=== PATIENT | female | born 1995 | race Caucasian/White ===

== ENCOUNTER 2023-10-19 21:02 | Emergency (ER) | payer MEDICAID, SELFPAY ==
[2023-10-19 21:03] VITALS: BP 129/77; PULSE 104; RESP 18; TEMP 37.2; O2SAT 100
[2023-10-19 21:27] VITALS: BP 134/68; PULSE 91; RESP 15; O2SAT 100
[2023-10-19 21:33] LABS: Basophils Percent Auto 0.4 % (0.2-1.2); Eosinophils Percent Auto 0.2 % (0-4.4); Hematocrit 35.5 % (37.0-47.0); Hemoglobin 12.4 g/dL (12.0-15.0); Immature Granulocyte Absolute 0.05 K/mm3 (0.00-0.031); Immature Granulocyte Percent A 0.4 % (0-0.5); Lymphocytes Absolute Auto 0.63 K/mm3 (0.9-3.2); Lymphocytes Percent Auto 5.6 % (18.3-44.2); Mean Corpuscular HGB Conc 34.9 g/dl (32-36); Mean Corpuscular Hemoglobin 30.3 pg (26-34); Mean Corpuscular Volume 86.8 fl (80-100); Mean Platelet Volume 10.7 fl (7.4-10.4); Monocytes Absolute Auto 0.7 K/mm3 (0.1-0.6); Monocytes Percent Auto 6.1 % (2.6-8.5); Neutrophils Absolute Auto 9.8 K/mm3 (1.3-6.7); Neutrophils Percent Auto 87.3 % (45.5-73.1); Platelet Count Result 189 k/mm3 (150-375); Red Blood Count 4.09 M/mm3 (4.2-5.4); Red Cell Distribution Width 13.2 % (11.5-14.5); White Blood Count 11.2 K/mm3 (4.5-10.0)
[2023-10-19 21:50] LABS: Alanine Aminotransferase 19 U/L (6-35); Albumin Level 4.3 g/dL (3.5-5.1); Alkaline Phosphatase 49 U/L (38-126); Anion Gap 9 mmol/L (4-12); Aspartate Amino Transferase 33 U/L (14-36); Bilirubin,Total 0.5 mg/dL (0.2-1.3); Blood Urea Nitrogen 10 mg/dL (7-17); Calcium 9.6 mg/dL (8.4-10.2); Carbon Dioxide 21 mmol/L (22-30); Chloride 103 mmol/L (98-107); Estimated CRCL calculation 112 ml/min; Estimated Glomerular Filt Rate > 60; Glucose 99 mg/dL (65-110); Lipase 46 U/L (23-300); Potassium 3.5 mmol/L (3.4-5.0); Sodium 133 mmol/L (137-145)
[2023-10-19] MEDS: SODIUM CHLORIDE 0.9% IV 1,000 ML 999 ML IV CONT ×2 (22:23)
[2023-10-19 22:33] LABS: Magnesium 1.7 mg/dL (1.6-2.3)
--- NOTE | 2023-10-19 22:38 | ED.NAVMDI ---
HPI - Nausea/Vomiting/Diarrhea General Chief complaint: Nausea/Vomiting/Diarrhea Stated complaint: n/v/d Time Seen by Provider: 10/19/23 21:25 Source: patient Mode of arrival: ambulatory Limitations: no limitations History of Present Illness HPI Narrative: Patient is a 28-year-old female who presents the ED with report of nausea and vomiting. Patient is and currently approximately 15 weeks gestation, confirmed IUP. She reports she ate pizza last night and began feeling ill overnight. Developed nausea, vomiting, diarrhea today. Has had multiple episodes of each. Was referred to the ED for fluid rehydration by OBGYN. Patient sees Sravani Sen, relief cook [place] [facility] [place] She denies current nausea. Denies fevers. Denies rectal bleeding or melena. Denies abdominal pain, vaginal bleeding. She is not yet feeling baby move. Related Data Allergies Allergy/AdvReac Type Severity Reaction Status Date / Time No Known Allergies Allergy Verified 10/19/23 21:05 Review of Systems Review of Systems: CONSTITUTIONAL: Denies fever, chills, or sweats. GASTROINTESTINAL: See HPI GENITOURINARY: Denies vaginal bleeding, dysuria or hematuria. MUSCULOSKELETAL: Denies back pain. NEUROLOGIC: Denies headache, dizziness, numbness, or weakness. All systems reviewed & are unremarkable except as noted in HPI and below Exam Narrative: GENERAL: Well appearing, thin, non-toxic, in no acute distress. HEAD: Normocephalic, atraumatic. RESPIRATORY: Airway patent, respirations nonlabored. Clear to auscultation bilaterally, no rales, rhonchi, wheezing. CARDIOVASCULAR: Regular rate and rhythm without murmurs, rubs, or gallops. ABDOMINAL: Soft, no tenderness throughout abdomen, nondistended. Normoactive BS. MUSCULOSKELETAL: Moves all extremities. No gross deformities. SKIN: Warm, dry, normal color. NEURO: A&O X3. Speech clear. PSYCHIATRIC: Appropriate mood and affect. Normal interaction. Course Vital Signs Vital signs: Vital Signs Temperature 99 F 10/19/23 21:03 Pulse Rate 104 H 10/19/23 21:03 Respiratory Rate 18 10/19/23 21:03 Blood Pressure 129/77 10/19/23 21:03 Pulse Oximetry 100 10/19/23 21:03 Oxygen Delivery Room Air 10/19/23 21:03 Temperature 99 F 10/19/23 21:03 Pulse Rate 91 10/19/23 21: Respiratory Rate 15 10/19/23 21:27 Blood Pressure 134/68 10/19/23 21:27 Pulse Oximetry 100 10/19/23 21:27 Oxygen Delivery Room Air 10/19/23 21:03 MDM - Nausea/Vomiting/Diarrhea MDM Narrative Medical decision making narrative: patient presented to ED with nausea, vomiting, diarrhea, currently 15 weeks gestation, confirmed IUP, referred to ED by OBGYN for fluids. Patient denying any abdominal pain or vaginal bleeding. Vitals are stable. Denies current nausea. CBC with white blood cell count of 11.2. Stable H&H. CMP with bicarb of 21, stable kidney function. Fluids ongoing. Magnesium within normal limits. Normal LFTs and lipase. Urinalysis with 2+ ketones, no evidence for infection. Good FHT noted. Patient given 2 L of fluid in the ED. She is feeling much better with supportive therapy. Able to tolerate p.o. intake. Feels comfortable discharge home at this time. Offered nausea medicine for home, however patient states she has been doing well with Unisom /B 6 that her OBGYN recommended. Advised to continue this. Recommended close follow-up with OBGYN for further evaluation. Given strict return precautions. She agrees with plan. Discharged in stable condition. Medical Records Attestation: I reviewed the patient's medical records. Lab Data Attestation: I reviewed the patient's lab results. 10/19/23 21:27 10/19/23 21:27 Labs: Lab Results 10/19/23 10/19/23 10/19/23 Range/Units 21:26 21:27 23:23 WBC 11.2 H (4.5-10.0) K/mm3 RBC 4.09 L (4.2-5.4) M/mm3 Hgb 12.4 (12.0-15.0) g/dL Hct 35.5 L (37.0-47.0) % MCV 86.8 (80-100) fl MCH 30.3
[2023-10-19 23:28] LABS: Appearance Urine Clear (Clear); Bilirubin Urine Negative (Negative); Blood Urine Negative (Negative); Color Urine Yellow (Yellow); Glucose Urine UA Negative (Negative); Ketones Urine 2+ mg/dL (Negative); Leukocyte Esterase Ur Negative LEU/UL (Negative); Nitrate Urine Negative (Negative); Protein Urine Negative (Negative); Specific Grav Ur 1.008 (1.001-1.035); Urobilinogen Urine 0.2 mg/dL (<2.0)
[2023-10-19 23:37] LABS: Add Urine Microscopic? NO
[2023-10-19 23:43] VITALS: BP 119/69; PULSE 87; RESP 15; O2SAT 100
== END 2023-10-19 23:45 | disposition home or self-care (01) ==
PROVIDERS: Student in an Organized Health Care Education/Training Program; Emergency Provider Physician Assistant
DX: O99.612 Diseases of the digestive system complicating pregnancy, second trimester (principal); K52.9 Noninfective gastroenteritis and colitis, unspecified; Z3A.15 15 weeks gestation of pregnancy
CPT/HCPCS: 36415; 80053; 81003; 83690; 83735; 85025; 96360; 99283; J7030

== ENCOUNTER 2024-03-26 16:46 | Outpatient (CLI) | payer OTHER, SELFPAY ==
[2024-03-26 17:15] VITALS: BP 127/84; PULSE 79
[2024-03-26 17:19] LABS: Hematocrit 35.8 % (37.0-47.0); Mean Corpuscular HGB Conc 33.5 g/dl (32-36); Mean Corpuscular Hemoglobin 30.5 pg (26-34); Mean Corpuscular Volume 91.1 fl (80-100); Mean Platelet Volume 12.4 fl (7.4-10.4); Platelet Count Result 138 k/mm3 (150-375); Red Blood Count 3.93 M/mm3 (4.2-5.4); Red Cell Distribution Width 12.1 % (11.5-14.5); White Blood Count 10.8 K/mm3 (4.5-10.0)
[2024-03-26 17:22] LABS: Add Urine Microscopic? NO; Appearance Urine Clear (Clear); Bilirubin Urine Negative (Negative); Blood Urine Negative (Negative); Color Urine Yellow (Yellow); Glucose Urine UA Negative (Negative); Ketones Urine Negative (Negative); Leukocyte Esterase Ur Negative LEU/UL (Negative); Nitrate Urine Negative (Negative); Protein Urine Negative (Negative); Specific Grav Ur 1.014 (1.001-1.035)
[2024-03-26 17:26] LABS: Alanine Aminotransferase 20 U/L (6-35); Albumin Level 3.7 g/dL (3.5-5.1); Alkaline Phosphatase 199 U/L (38-126); Anion Gap 10 mmol/L (4-12); Aspartate Amino Transferase 31 U/L (14-36); Bilirubin,Total 0.2 mg/dL (0.2-1.3); Blood Urea Nitrogen 9 mg/dL (7-17); Calcium 9.1 mg/dL (8.4-10.2); Carbon Dioxide 25 mmol/L (22-30); Chloride 98 mmol/L (98-107); Estimated Glomerular Filt Rate > 60; Glucose 100 mg/dL (65-110); Potassium 3.6 mmol/L (3.4-5.0); Sodium 133 mmol/L (137-145); Uric Acid 5.5 mg/dL (2.5-7.5)
--- NOTE | 2024-03-26 17:26 | PC.NURSE ---
Patient was sent over from [facility]'s office for elevated BP. Patient declines any pre-eclampsia symptoms. Patient states she is feeling baby move normally and does not have any significant medical history.
[2024-03-26 17:30] VITALS: BP 123/75; PULSE 70
[2024-03-26 17:45] VITALS: BP 123/76; PULSE 80
[2024-03-26 17:51] LABS: Band Neutrophils Percent 4 % (0-6); Lymphocytes Absolute Manual 1.62 K/mm3 (1.1-4.5); Monocytes Absolute Manual 0.54 K/mm3 (0.1-0.90); Monocytes Percent Manual 5 % (3-9); Neutrophils Absolute Manual 8.64 K/mm3 (1.7-7.2); Neutrophils Percent Manual 76 % (46-73); Platelet Estimate Slightly Decreased (Adequate); Total Cells Counted 100
[2024-03-26 17:52] LABS: Schistocytes None Seen
[2024-03-26 17:58] VITALS: BP 127/84; PULSE 76
[2024-03-26 18:14] LABS: Creatinine Urine 104.7 mg/dL
[2024-03-26 18:23] LABS: Total Protein Urine Random < 5 mg/dL
[2024-03-26 18:24] LABS: Ur Ttl Prot Creatinine Ratio < 0.05 mg/mg (0-0.20)
== END 2024-03-26 18:00 | disposition home or self-care (01) ==
LOC: ANHOBOP 16:51 → ANHOBPP 16:52
PROVIDERS: Visit Provider Advanced Practice Midwife
DX: Z34.90 Encounter for supervision of normal pregnancy, unspecified, unspecified trimester (principal); R03.0 Elevated blood-pressure reading, without diagnosis of hypertension; Z3A.00 Weeks of gestation of pregnancy not specified
CPT/HCPCS: 36415; 59025; 80053; 81003; 82570; 84156; 84550; 85025; 99199

== ENCOUNTER 2024-03-28 19:06 | Inpatient (IN) | payer OTHER, SELFPAY ==
[2024-03-28] VITALS (9 sets, daily range): BP systolic 116–137; BP diastolic 59–97; PULSE 74–91; TEMP 36.7; BMI 25.9
--- NOTE | 2024-03-28 19:50 | LDADM ---
This patient, Aubrey Arambula, was admitted to Labor/Delivery/Recovery 107 on 03/28/24 at 19:06. Plans for labor, pain management and were discussed with patient. Patient/family oriented to hospital policies and general routines including ID bracelet, bed and alarms, visiting hours, pain management, procedures, bathroom and other care routines, personal items, smoking policy, room service/diet and guest tray routines, security routines, and visiting hours. Patient/Family are encouraged to report perceived risks to care and to ask questions if they do not understand what they are told or what they should do. See [facility] for further documentation.
[2024-03-28 19:52] LABS: Basophils Percent Auto 0.2 % (0.2-1.2); Eosinophils Absolute Auto 0.1 K/mm3 (0-0.3); Eosinophils Percent Auto 1.3 % (0-4.4); Hematocrit 41.4 % (37.0-47.0); Hemoglobin 13.7 g/dL (12.0-15.0); Immature Granulocyte Absolute 0.03 K/mm3 (0.00-0.031); Immature Granulocyte Percent A 0.3 % (0-0.5); Lymphocytes Absolute Auto 1.43 K/mm3 (0.9-3.2); Lymphocytes Percent Auto 14.3 % (18.3-44.2); Mean Corpuscular HGB Conc 33.1 g/dl (32-36); Mean Corpuscular Hemoglobin 30.4 pg (26-34); Mean Platelet Volume 12.7 fl (7.4-10.4); Monocytes Absolute Auto 0.8 K/mm3 (0.1-0.6); Monocytes Percent Auto 8.4 % (2.6-8.5); Neutrophils Absolute Auto 7.6 K/mm3 (1.3-6.7); Neutrophils Percent Auto 75.5 % (45.5-73.1); Platelet Count Result 159 k/mm3 (150-375); Red Cell Distribution Width 11.9 % (11.5-14.5)
[2024-03-28 20:04] LABS: Alanine Aminotransferase 23 U/L (6-35); Albumin Level 4.4 g/dL (3.5-5.1); Alkaline Phosphatase 244 U/L (38-126); Anion Gap 11 mmol/L (4-12); Aspartate Amino Transferase 34 U/L (14-36); Bilirubin,Total 0.3 mg/dL (0.2-1.3); Blood Urea Nitrogen 9 mg/dL (7-17); Calcium 9.7 mg/dL (8.4-10.2); Carbon Dioxide 24 mmol/L (22-30); Chloride 100 mmol/L (98-107); Estimated CRCL calculation 102 ml/min; Estimated Glomerular Filt Rate > 60; Glucose 85 mg/dL (65-110); Potassium 3.9 mmol/L (3.4-5.0); Sodium 135 mmol/L (137-145)
[2024-03-28] MEDS: miSOPROStol 25 MCG TABLET 50 MCG PO (20:11)
[2024-03-28 20:18] LABS: Rapid Plasma Reagin Non-Reactive (NonReactive)
[2024-03-29] VITALS (134 sets, daily range): BP systolic 100–152; BP diastolic 51–133; PULSE 52–119; RESP 16; TEMP 36.8–37.6; O2SAT 85–100
[2024-03-29] MEDS: miSOPROStol 25 MCG TABLET 50 MCG PO (00:08)
[2024-03-29 01:57] LABS: HIV 1/2 Ab P24 Ag Result Negative (Negative)
[2024-03-29] MEDS: LACTATED RINGERS 1,000 ML 125 ML IV CONT ×3 (06:57→10:17)
[2024-03-29] MEDS: OXYTOCIN 30 UNITS/NS 500 ML 30 UNITS/500 ML BAG IV CONT (06:58)
--- NOTE | 2024-03-29 08:16 | WPDANESEPP ---
Anes - Eval Pre Procedure Procedure: labor epidural Date/Time: 03/29/24 08:16 Preop Diagnosis: labor pain Pre Op Diagnosis: IOL Patient Data Age: 28 Gender: F Height: 1.7 m Weight: 75 kg Last Vital Signs Temp 37.0 C 03/29/24 07:00 Pulse 95 03/29/24 07:31 BP 134/88 03/29/24 07:31 O2 Del Method Room Air 03/28/24 19:49 Allergies Allergy/AdvReac Type Severity Reaction Status Date / Time No Known Allergies Allergy Verified 10/19/23 21:05 Home Medications Medication Instructions Recorded Confirmed Type prenat.vits,garcía,[id number] 1 tablet DAILY 03/17/24 03/28/24 History Laboratory Tests 03/28/24 19:44 WBC 10.0 K/mm3 (4.5-10.0) RBC 4.50 M/mm3 (4.2-5.4) Hgb 13.7 g/dL (12.0-15.0) Hct 41.4 % (37.0-47.0) MCV 92.0 fl (80-100) MCH 30.4 pg (26-34) MCHC 33.1 g/dl (32-36) RDW 11.9 % (11.5-14.5) Plt Count 159 k/mm3 (150-375) MPV 12.7 H fl (7.4-10.4) Immature Gran % (Auto) 0.3 % (0-0.5) Neut % (Auto) 75.5 H % (45.5-73.1) Lymph % (Auto) 14.3 L % (18.3-44.2) [place] % (Auto) 8.4 % (2.6-8.5) Eos % (Auto) 1.3 % (0-4.4) Baso % (Auto) 0.2 % (0.2-1.2) Lymph # (Auto) 1.43 K/mm3 (0.9-3.2) [place] # (Auto) 0.8 H K/mm3 (0.1-0.6) Eos # (Auto) 0.1 K/mm3 (0-0.3) Baso # (Auto) 0.0 K/mm3 (0.0-0.1) Abs Immat Gran (auto) 0.03 K/mm3 (0.00-0.031) Absolute Neuts (auto) 7.6 H K/mm3 (1.3-6.7) Absolute Nucleated RBC 0.000 K/mm3 (0.0-0.012) Nucleated RBC % 0.0 % (0.0-0.2) Sodium 135 L mmol/L (137-145) Potassium 3.9 mmol/L (3.4-5.0) Chloride 100 mmol/L (98-107) Carbon Dioxide 24 mmol/L (22-30) Anion Gap 11 mmol/L (4-12) BUN 9 mg/dL (7-17) Creatinine 0.70 mg/dL (0.7-1.0) Estim Creat Clear Calc 102 ml/min Estimated GFR > 60 (59 - ) Glucose 85 mg/dL (65-110) Uric Acid 6.0 mg/dL (2.5-7.5) Calcium 9.7 mg/dL (8.4-10.2) Total Bilirubin 0.3 mg/dL (0.2-1.3) AST 34 U/L (14-36) ALT 23 U/L (6-35) Alkaline Phosphatase 244 H U/L (38-126) Total Protein 8.0 g/dL (6.3-8.2) Albumin 4.4 g/dL (3.5-5.1) RPR Non-reactive (NonReactive) HIV 1&2 Ab/P24 Ag 4thGn Negative (Negative) Blood Type O Positive Antibody Screen Negative Patient hx anesthesia problems: none Family hx anesthesia problems: none Results Review: All pre-operative results and documents have been reviewed as part of the pre-operative evaluation. [facility] Family History Family History Father Diabetes mellitus Social History Social History Smoking status: Never smoker Second hand tobacco smoke exposure: No Substance use: never Do You Feel Safe in your Home?: Yes Lack of Transportation: No Lack of Food: Never True Current Housing: I Have Housing Concerned About Future Housing: No Difficulty Paying Gas/Electric Bills: No Difficulty Paying for Meds: No Currently Unemployed: No Education: Bachelor's Degree Difficulty w/ Childcare or Family Care: No Spiritual care concerns: No Exam Day of Procedure 03/29/24 08:16 Patient weight: normal Heart: regular rate and rhythm Lungs: clear to auscultation and normal air movement Airway: Mallampati scale class II Neurological: alert and oriented
--- NOTE | 2024-03-29 08:49 | WPDOBADMIT ---
Obstetrics - Admit Note Admission Note: record reviewed. No pertinent additions to the history and/or any subsequent changes in the physical findings that are not consistent with the expected course of the were found. Additions to the history and/or subsequent changes in the physical findings follow. IOL, gestational hypertension
[2024-03-29] MEDS: miSOPROStol 200 MCG TABLET 1000 MCG RECTAL (13:58)
--- NOTE | 2024-03-29 14:06 | PM.OBPRVD ---
OB - Vaginal Delivery Note Procedure Delivery date: 03/29/24 Events: Chronic Hypertension Induction method: AROM, Per Misoprostol Protocol and Per Pitocin Protocol Delivery monitor: External FHT Route of delivery: Episiotomy description: None Laceration Description: Labial (right and left) Specimen: No Quantitative Blood Loss (ml): 175 Anesthesia type: Epidural Disposition: Floor Complications: No immediate complications Baby Date of : 03/29/24 Time of : 13:46 Gestational Age by Date: 37 Infant gender: Female presentation: vertex position: Left Occiput Anterior Placenta delivery description: Spontaneous Cord Vessel Description: 3 Vessels score one minute: 8 score five minutes: 9 Narrative: skin to skin in stable condition
[2024-03-29] MEDS: OXYTOCIN 30 UNITS/NS 500 ML 30 UNITS/500 ML BAG 125 UNITS IV CONT (14:24)
[2024-03-29] MEDS: IBUPROFEN 600 MG TABLET PO (17:41)
[2024-03-30] VITALS: BP 112/61; PULSE 81; RESP 16; TEMP 37.1
[2024-03-30] MEDS: IBUPROFEN 600 MG TABLET PO ×3 (02:32→18:47)
[2024-03-30] MEDS: ACETAMINOPHEN 325 MG TABLET 650 MG PO ×3 (02:33→18:47)
[2024-03-30 04:55] LABS: Hematocrit 32.4 % (37.0-47.0); Hemoglobin 10.9 g/dL (12.0-15.0)
[2024-03-30 08:06] VITALS: BP 122/85; PULSE 71; RESP 20; TEMP 36.6; O2SAT 99
--- NOTE | 2024-03-30 09:41 | PM.OBPNVD ---
OB - PN: Subj Subjective Date/time seen: 03/30/24 09:41 Interval history: pp day 1 doing well breast feeding OB - PN: Obj Data Labs 03/30/24 04:19 03/28/24 19:44 Labs: Laboratory Results - last 24 hr 03/30/24 04:19 Hgb 10.9 L Hct 32.4 L OB - PN A/P Plan day: 1 Plan: routine care Time Spent With Patient Time: Total time spent is greater than 50% in coordination of care (as documented) at patient's floor/unit and/or counseling patient: Review of Systems Review of Systems: All systems reviewed & are unremarkable except as noted in HPI and below Exam Const: General: cooperative and healthy appearing Resp: Effort & Inspection: normal respiratory effort Neuro: General: patient oriented x3
--- NOTE | 2024-03-30 10:09 | WPDANLDPN2 ---
Anes-Prog Note L&D Date/Time: 03/30/24 10:09 Comfortable throughout: labor and delivery Neuraxial method: epidural Epidural/Spinal procedure site: clean & non-tender Neuro status: Neuro function grossly intact. Cardiovascular status: normal Respiratory status: normal Airway patency: baseline Mental status: baseline Post-Op hydration status: normal Vital Signs: Last Vital Signs Temp 36.6 C 03/30/24 08:06 Pulse 71 03/30/24 08:06 Resp 20 03/30/24 08:06 BP 122/85 03/30/24 08:06 Pulse Ox 99 03/30/24 08:06 O2 Del Method Room Air 03/28/24 19:49 Pain score (VAS): 0 I/O: Intake & Output 03/29/24 03/30/24 03/30/24 23:59 07:59 15:59 Intake Total 100 Output Total 890 Balance -790 Post-procedural complaints: none Patient feedback: Patient satisfied with anesthetic care.
[2024-03-30 22:40] VITALS: BP 122/73; PULSE 67; RESP 16; TEMP 36.8; O2SAT 96
[2024-03-31] MEDS: BENZOCAINE 20% AER SPR (*SP) 56 GM CAN 1 SPRAY TOPICAL (07:18)
[2024-03-31] MEDS: WITCH HAZEL 40 PADS 1 PAD TOPICAL (07:18)
[2024-03-31] MEDS: IBUPROFEN 600 MG TABLET PO (07:19)
[2024-03-31 07:40] VITALS: BP 130/72; PULSE 82; RESP 18; TEMP 36.6; O2SAT 99
--- NOTE | 2024-03-31 08:25 | PM.OBPNVD ---
OB - PN: Subj Subjective Date/time seen: 03/31/24 08:25 Patient comments: no complaints, pain well controlled and tolerating diet OB - PN: Obj Data Labs 03/30/24 04:19 03/28/24 19:44 OB - PN A/P Plan day: 2 Plan: routine care and discharge home Time Spent With Patient Time: Total time spent is greater than 50% in coordination of care (as documented) at patient's floor/unit and/or counseling patient: Exam Const: General: comfortable and no acute distress Resp: Effort & Inspection: normal respiratory effort Auscultation: no rales, no rhonchi and no wheezes Cardio: Rate: regular rate Heart sounds: no click, no murmurs and no rubs GI: GI Palp: Yes Soft to palpation and No Tenderness to palpation present (GI) Auscultation: normal bowel sounds Extrem: General: normal to inspection, no pedal edema and no calf tenderness
--- NOTE | 2024-03-31 08:26 | PM.OBDSVD ---
DS: Admitting Diagnosis Discharge Date March 31, 2024 Admitting Diagnosis term DS: Discharge Diagnosis Discharge Diagnosis (1) Post term , delivered: Code(s): O48.0 - Post-term Status: Acute OB - DS: Summary OB Procedures : None OB Procedures Intrapartum: Spontaneous Vag Delivery OB Procedures: : None Peripartum Data Laceration Description: Labial (right and left) Episiotomy description: None Time Spent with Patient Time attestation: Total time spent providing and/or coordinating discharge services: Discharge Plan Discharge Discharging Clinician: Elmer Snyder Patient Disposition: Home, Self-Care Activity: pelvic rest Diet: regular Patient Instructions: Antibiotic Form Stand Alone Forms: General Discharge Information Follow-up/Referrals: Elmer Snyder MD [Physician] - Discharge Medications: Continued #2 Tablet 1 tablet DAILY Date of admission: 03/28/24 19:06 Primary Care Provider: Sravani Sen Admitting Provider: Elmer Snyder Attending physician on admission: Elmer Snyder Condition: Stable
[2024-04-01 11:23] VITALS: BP 125/84; PULSE 83; RESP 18; TEMP 37.1; O2SAT 100
== END 2024-03-31 09:45 | disposition home or self-care (01) | DRG 560 ==
LOC: ANHLDR 19:14 → ANHOB2 03-29 17:13
PROVIDERS: Admitting Provider Obstetrics & Gynecology; PCP Advanced Practice Midwife; Visit Provider Obstetrics & Gynecology
DX: O13.4 Gestational [pregnancy-induced] hypertension without significant proteinuria, complicating childbirth (principal); Z37.0 Single live birth; Z3A.37 37 weeks gestation of pregnancy; O70.0 First degree perineal laceration during delivery
CPT/HCPCS: 36415; 80053; 84550; 85014; 85018; 85025; 86592; 86703; 86850; 86900; 86901; A9270; G0432; J2590; J2795; J7120